=== PATIENT | female | born 1975 | race Caucasian/White ===

== ENCOUNTER → 2016-12-03 | Outpatient (CLI) | payer OTHER | LOC: FIMAGING 07:20 | PROVIDERS: ATTEND Emergency Medicine | DX: S62.511A Displaced fracture of proximal phalanx of right thumb, initial encounter for closed fracture (principal) ==

== ENCOUNTER 2016-12-10 10:56 | Day surgery (SDC) | payer OTHER ==
[2016-12-10] MEDS ORDERED: BUPIVACAINE 0.5% 30 ML SDV ONE (11:58)
[2016-12-10] MEDS ORDERED: MIDAZOLAM 2 MG/2 ML VIAL ONE (12:08)
[2016-12-10] MEDS ORDERED: LIDOCAINE 2% JELLY 5 ML TUBE ONE (12:20)
[2016-12-10] MEDS ORDERED: PROPOFOL/EMULSION 500 MG/50 ML BOTTLE IV ONE (12:20)
[2016-12-10] MEDS ORDERED: fentaNYL 100 MCG/2 ML INJ ONE ×2 (12:21→13:29)
[2016-12-10] MEDS ORDERED: DEXAMETHASONE 4 MG/ML VIAL ONE (12:40)
[2016-12-10] MEDS ORDERED: LIDOCAINE 2% 5 ML SDV ONE (12:41)
[2016-12-10] MEDS ORDERED: ONDANSETRON 4 MG/2 ML VIAL ONE ×2 (12:43→14:13)
[2016-12-10] MEDS ORDERED: ceFAZolin 1 GM VIAL ONE (12:45)
--- NOTE | 2016-12-10 13:57 | GOP ---
DATE OF OPERATION: 12/10/2016 SURGEON: Anselmo Haynes MD PREOPERATIVE DIAGNOSIS: Fracture, base, proximal phalanx, right thumb metacarpophalangeal joint wit h 90-degree rotation of the fracture fragment and rupture ulnar collateral ligament. POSTOPERATIVE DIAGNOSIS: Fracture, base, proximal phalanx, right thumb metacarpophalangeal joint wi th 90-degree rotation of the fracture fragment and rupture ulnar collateral ligament. PROCEDURE PERFORMED: Excision of fracture fragment, smoothing of the fracture site. This fracture fragment did not consist of a significant portion of articular surface and repair ulnar collateral l igament. FINDINGS: INDICATIONS: This patient has a fracture fragment which had rotated 90 degrees. Articular surface was facing the fracture line and also had instability with rupture of the ulnar collateral ligament. It was felt that surgical treatment for her was the best option. DESCRIPTION OF PROCEDURE: Under general anesthesia, the patient's right arm was prepped and draped in the usual fashion. Arm tourniquet was applied at 250 mmHg. C-shaped incision was made over the dorsal ulnar aspect of the MP joint. Skin and subcutaneous tiss ue were reflected. 1 branch of the dorsal sensory nerve was identified and protected. The extensor alberto was opened longitudinally and the ulnar collateral ligament was found to be ruptured as well a s the dorsal capsule. The ligament was elevated slightly more palmarly in order to expose the fract ure fragment and that fracture fragment had a minimal articular surface on it and had rotated 90 deg silas. It was felt that with such minimal involvement of the articular surface, that excision would be her best option rather than reduction and K-wire fixation and waiting for the fracture to heal in place before remobilization. The fracture fragment was excised. The fracture site was smoothed us ing a bone rongeur. The edge of the articular surface was smoothed and then collateral ligament was debrided and suture repaired using figure-of-8 sutures, 4-0 PDS. Stability of the thumb was tested and found to be excellent and she also had full range of motion of the IP joint in spite of suture repair of the ligament. The extensor alberto was then repaired using a running simple suture of 4-0 PD S. Fluoroscopic views revealed that the joint was lined up nicely and there were no remaining fract ure fragments. Then, the skin was closed using horizontal mattress sutures of 5-0 Prolene. A bulky soft pressure dressing was applied followed by fiberglass thumb spica splint held in place w ith an Humberto bandage. She tolerated the procedure well. Tourniquet deflation resulted in immediate p inking of the digits. She was brought to the recovery area where detailed postoperative instructions were given prior to d ischarge. A prescription for Aurora and Keflex was provided. She had been given a gram of Ancef bhavya or to commencement of surgery. Followup arrangements in the office for about a week postop for dres sing and suture removal and hand-based fiberglass thumb spica cast application for 3 additional week s. /[id number]/MODL
[2016-12-10] MEDS ORDERED: HYDROCODONE/APAP 5/325 TAB ONE (14:32)
[2016-12-10] MEDS ORDERED: PROMETHAZINE HCL 25 MG/ML INJ ONE (14:32)
== END 2016-12-10 15:20 | disposition home or self-care (01) ==
LOC: FSGY 10:56
PROVIDERS: ATTEND Specialist
PROC: 0PBR0ZZ Excision of Right Thumb Phalanx, Open Approach (ICD-10-PCS; principal; 2016-12-10 12:00)
PROC: 0XQ Anatomical Regions, Upper Extremities, Repair (ICD-10-PCS; principal; 2016-12-10 12:00)
DX: S53.31XA Traumatic rupture of right ulnar collateral ligament, initial encounter (principal); S62.521A Displaced fracture of distal phalanx of right thumb, initial encounter for closed fracture; Y92.838 Other recreation area as the place of occurrence of the external cause; Y93.23 Activity, snow (alpine) (downhill) skiing, snowboarding, sledding, tobogganing and snow tubing; V00.321A Fall from snow-skis, initial encounter
CPT/HCPCS: J0690; J1100; J2250; J2405; J2550; J2704; J3010

== ENCOUNTER → 2018-01-18 | Outpatient (CLI) | payer OTHER | LOC: FIMAGING 07:15 | PROVIDERS: ATTEND Emergency Medicine | DX: M25.472 Effusion, left ankle (principal) ==